=== PATIENT | male | born 1975 | race Caucasian/White ===

== ENCOUNTER → 2017-09-14 | Outpatient (CLI) | payer BC ==
--- NOTE | 2017-09-14 13:18 | XR ---
EXAMINATION TYPE: XR lumbar spine 3V DATE OF EXAM: 09/14/2017 COMPARISON: NONE HISTORY: 42-year-old male with low back pain TECHNIQUE: 3 views FINDINGS: 5 lumbar type vertebral bodies. Mild to moderate disc space narrowing with endplate spondylosis at L4 -L5 and L5-S1. There is grade 1 retrolistheses at L3-L4 and L4-L5. Facet arthropathy mid to lower lum bar spine. Vertebral body heights are maintained. IMPRESSION: 1. [id number] degenerative disc disease L4-L5 and L5-S1 with corresponding facet arthropathy. 2. Trace grade 1 retrolisthesis at L3-L4 and L4-L5.
--- NOTE | 2017-09-14 13:20 | XR ---
EXAMINATION TYPE: XR Hip Complete 2 views RT DATE OF EXAM: 09/14/2017 COMPARISON: NONE HISTORY: 42-year-old male with right hip pain FINDINGS: Hip joint space is relatively maintained. No acute fracture, subluxation, or dislocation. Visualized right SI joint appears intact. Tiny bone island in the femoral neck. IMPRESSION: No acute osseous abnormality seen.
== END ==
LOC: RADXRMAIN 12:35
PROVIDERS: ATTEND Physician Assistant
DX: M51.37 Other intervertebral disc degeneration, lumbosacral region (principal); M46.87 Other specified inflammatory spondylopathies, lumbosacral region; M25.551 Pain in right hip
CPT/HCPCS: 72100; 73502

== ENCOUNTER 2017-11-16 07:55 | Day surgery (SDC) | payer BC ==
[2017-11-14 11:49] VITALS: BMI 35.3
--- NOTE | 2017-11-16 07:45 | P.GSHP ---
History of Present Illness H&P Date: 11/16/17 CHIEF COMPLAINT: GERD and change in bowel habits HISTORY OF PRESENT ILLNESS: The patient is a 42-year-old male who presents with gastroesophageal reflux disease and change in bowel habit Upper and lower endoscopy were offered for further evaluation and management. PAST MEDICAL HISTORY: Please see list. PAST SURGICAL HISTORY: Please see list. MEDICATIONS: Please see list. ALLERGIES: Please see list. SOCIAL HISTORY: No illicit drug use FAMILY HISTORY: No reports of Crohn disease or ulcerative colitis. REVIEW OF ORGAN SYSTEMS: CONSTITUTIONAL: No reports of fevers or chills. GI: Denies any blood in stools or constipation. PHYSICAL EXAM: VITAL SIGNS: Stable GENERAL: Well-developed pleasant in no acute distress. HEENT: No scleral icterus. Extraocular movements grossly intact. Moist buccal mucosa. NECK: Supple without lymphadenopathy. CHEST: Unlabored respirations. Equal bilateral excursions. CARDIOVASCULAR: Regular rate and rhythm. Distal 2+ pulses. ABDOMEN: Soft, nondistended. MUSCULOSKELETAL: No clubbing, cyanosis, or edema. ASSESSMENT: 1. Gastroesophageal reflux disease 2. Change in bowel habits PLAN: 1. Recommend proceeding with an upper and lower endoscopy Past Medical History Past Medical History: GERD/Reflux, Hypertension, Musculoskeletal Disorder Additional Past Medical History / Comment(s): recent blood in stool, sciatic pain, hx. of blood clot behind testicle after vasectomy surgeries-was on blood thinner for @that time History of Any Multi-Drug Resistant Organisms: None Reported Past Surgical History: Appendectomy, Orthopedic Surgery, Tonsillectomy Additional Past Surgical History / Comment(s): vasectomy reversal, arthroscopy knee Past Anesthesia/Blood Transfusion Reactions: No Reported Reaction Smoking Status: Former smoker - Past Family History Mother Family Medical History: No Reported History Medications and Allergies Home Medications Medication Instructions Recorded Confirmed Type Cyclobenzaprine HCl [Amrix] 15 mg PO HS 11/14/17 11/14/17 History Lisinopril [Zestril] 20 mg PO DAILY 11/14/17 11/14/17 History Naproxen [Naprosyn] 500 mg PO Q12HR 11/14/17 11/14/17 History Omeprazole [PriLOSEC] 20 mg PO AC-BRKFST 11/14/17 11/14/17 History traMADol HCL [Ultram] 50 mg PO Q6HR PRN 11/14/17 11/14/17 History Allergies Allergy/AdvReac Type Severity Reaction Status Date / Time No Known Allergies Allergy Verified 11/14/17 11:27
[~2017-11-16 07:55] MED LIST: LACTATED RINGERS 1,000 ML IV SCH; LIDOCAINE 1% 20 ML VIAL (10MG/ML) FOR IV START INTRADERMA PRN; MIDAZOLAM 2 MG/2 ML VIAL IV PRN
[2017-11-16 09:01] VITALS: RESP 18; TEMP 99
[2017-11-16] MEDS ORDERED: PROPOFOL 10 MG/ML 20 ML VIAL IV ONE (09:20)
[2017-11-16] MEDS ORDERED: LIDOCAINE 1% INJ 10MG/ML (20 ML MDV) ONE (09:20)
--- NOTE | 2017-11-16 09:54 | P.PCN ---
Date of Procedure: 11/16/17 Description of Procedure: PREOPERATIVE DIAGNOSIS: Gastrointestinal bleed POSTOPERATIVE DIAGNOSIS: Diaphragmatic hiatal hernia without obstruction. OPERATION: Esophagogastroduodenoscopy SURGEON: Aide Santillan MD ANESTHESIA: MAC. INDICATIONS: The patient is a 42-year-old male who presents with history of gastrointestinal bleed. Benefits and risks of the procedure were described. Informed consent was obtained. DESCRIPTION: The patient was brought into the endoscopy suite and laid in the left lateral decubitus position. An Olympus gastroscope was passed along the posterior oropharynx down to the distal esophagus where the squamocolumnar junction was encountered at 40 cm from the incisors. The stomach was entered and no bile reflux was found. Additional findings are listed below. The first through third portion of the duodenum was examined and unremarkable. Retroflexion of the scope confirmed Hill grade 3 lower esophageal valve. The squamocolumnar junction demostrated no LA grade A erosive esophagitis. The stomach was desufflated. The patient tolerated the procedure well. FINDINGS: Squamocolumnar junction 40 cm from the incisors. Diaphragmatic hiatus at 40 cm. Hill grade 3 lower esophageal valve. No LA grade A erosive esophagitis. No active duodenitis. No gastric ulcers RECOMMENDATIONS: Upper endoscopy as needed.
--- NOTE | 2017-11-16 10:00 | P.PCN ---
Date of Procedure: 11/16/17 Description of Procedure: PREOPERATIVE DIAGNOSIS: History of gastrointestinal hemorrhage. History of rectal bleed. POSTOPERATIVE DIAGNOSIS: Internal hemorrhoids. Colon polyp, sigmoid OPERATION: Colonoscopy to the ileocecal valve and appendiceal orifice Colonoscopy with snare polypectomy of sigmoid colon SURGEON: Aide Santillan MD. ANESTHESIA: MAC. INDICATIONS: The patient is a 42-year-old male who presents with rectal bleeding. Benefits and risks were described and informed consent was obtained. DESCRIPTION OF PROCEDURE: The patient had undergone Gatorade, MiraLAX and Dulcolax prep. He had been brought into the operating room and laid in the left lateral decubitus position. After adequate intravenous sedation, the rectum was examined with 2% lidocaine jelly. No external hemorrhoids were encountered. The rectal tone was within normal limits. No lesions were palpated in the rectal vault. The prostate was smooth and without abnormality. An Olympus colonoscope was advanced until the ileocecal valve and appendiceal orifice were clearly viewed. No colitis was found. No arteriovenous malformation was encountered. A hyperplastic polyp was found at 20 cm from the anal verge and snare polypectomy. Retroflexion of the scope demonstrated grade 2 internal hemorrhoids without active bleeding or inflammation. The colon was desufflated. The patient had tolerated the procedure well. FINDINGS: Internal hemorrhoids, grade 2. No external prolapsed hemorrhoids. No diverticulosis. No focal colitis. No arteriovenous malformation. A hyperplastic polyp 4-mm, was found at 20 cm from the anal verge and snare polypectomy. RECOMMENDATIONS: Recommend proceeding with upper endoscopy. If both scopes are unremarkable may also need a capsule endoscopy in the future. Plan - Discharge Summary New Discharge Prescriptions: No Action traMADol HCL [Ultram] 50 mg PO Q6HR PRN PRN Reason: Pain Cyclobenzaprine HCl [Amrix] 15 mg PO HS Omeprazole [PriLOSEC] 20 mg PO AC-BRKFST Naproxen [Naprosyn] 500 mg PO Q12HR Lisinopril [Zestril] 20 mg PO DAILY Discharge Medication List Cyclobenzaprine HCl [Amrix] 15 mg PO HS 11/14/17 [History] Lisinopril [Zestril] 20 mg PO DAILY 11/14/17 [History] Naproxen [Naprosyn] 500 mg PO Q12HR 11/14/17 [History] Omeprazole [PriLOSEC] 20 mg PO AC-BRKFST 11/14/17 [History] traMADol HCL [Ultram] 50 mg PO Q6HR PRN 11/14/17 [History]
[2017-11-16 10:40] VITALS: BP 114/80; PULSE 80
--- NOTE | 2017-11-18 15:10 | CDI ---
Outpatient Documentation Clarification Form Date: 11/18/17 CDS/Space Officer Name: Mariam Warren Phone: If any questions, call Milly Phelps Circuit Design Engineer at [phone] Patient Name: Michele Chen Admit Date: 11/16/17 Discharge Date: 11/16/17 ATTENTION: The [facility] Coding Staff appreciate your assistance in clarifying documentation. Please respond to the clarification below the line at the bottom and electronically sign. The [facility] Coding staff will review the response and follow-up if needed. Please note: Queries are made part of the Legal Health Record. If you have any questions, please contact the Circuit Design Engineer. Dear Dr. Santillan, Both rectal bleeding and gastrointestinal hemorrhage are documented. What is the cause of either or both? Thank you for your kind consideration. PLEASE SEE POSTOP DIAGNOSIS----RECTAL BLEEDING FROM HEMORRHOIDS! KM 11/18/17 @ 15 :43 MTDD
== END 2017-11-16 10:49 | disposition home or self-care (01) ==
LOC: ORWHC2ENDO 07:55
PROVIDERS: ATTEND Surgery Plastic and Reconstructive Surgery
DX: K64.1 Second degree hemorrhoids (principal); K63.5 Polyp of colon; K44.9 Diaphragmatic hernia without obstruction or gangrene; K21.9 Gastro-esophageal reflux disease without esophagitis; R19.4 Change in bowel habit; I10 Essential (primary) hypertension; Z87.891 Personal history of nicotine dependence; Z79.1 Long term (current) use of non-steroidal anti-inflammatories (NSAID); Z79.899 Other long term (current) drug therapy
CPT/HCPCS: 88305; 45385; 43235; J2001; J2704

== ENCOUNTER → 2017-11-28 | Outpatient (CLI) | payer BC ==
--- NOTE | 2017-11-28 20:47 | MR ---
EXAMINATION TYPE: MR lumbar spine wo con DATE OF EXAM: 11/28/2017 7:20 PM COMPARISON: NONE HISTORY: Pain Multiplanar, MultiSpin echo imaging of the lumbar spine was performed. L1-L2: Normal disc appearance without desiccation. No herniation, protrusion or disc bulging. No ca nal stenosis is present. Foramina are patent bilaterally. L2-L3: Moderate evidence of disc desiccation. Right paracentral subligamentous disc herniation. Mild effacement ventral thecal sac. Right lateral recess stenosis noted. Tubular fluid signal structure ri ght neural foramen may reflect perineural cyst. No evidence for central stenosis. L3-L4: Normal disc appearance without desiccation. No herniation, protrusion or disc bulging. No ca nal stenosis is present. Foramina are patent bilaterally. L4-L5: Moderate to severe disc desiccation. Circumferential disc bulge greatest posteriorly. Subligam entous herniation effaces the ventral thecal sac. Hypertrophy of the ligamentum flavum and facet join t arthropathy result in borderline to mild central stenosis. Bilateral foraminal encroachment. Mild f acet joint arthropathy. L5-S1: Moderate to severe disc desiccation. Circumferential disc bulge. Left paracentral disc protrus ion. Mild effacement ventral thecal sac. No definite lateral recess stenosis. Lumbar segments are intact. No paraspinal masses are identified. Conus medullaris has a normal appe arance. IMPRESSION: 1. Multilevel degenerative disc disease. 2. Right L2-3 paracentral mild disc herniation with right lateral recess stenosis. Adjacent tubular f luid signal A reflect a perineural cyst. This could be confirmed with contrast-enhanced study. 3. Borderline to mild the central stenosis at L4-5. 4. Left paracentral disc protrusion L5-S1.
== END | disposition home or self-care (01) ==
LOC: RADMRIMAIN 18:34
PROVIDERS: ATTEND Family Medicine
DX: M48.061 Spinal stenosis, lumbar region without neurogenic claudication (principal); M51.36 Other intervertebral disc degeneration, lumbar region; M51.27 Other intervertebral disc displacement, lumbosacral region; M53.86 Other specified dorsopathies, lumbar region
CPT/HCPCS: 72148

== ENCOUNTER → 2018-01-16 | Outpatient (CLI) | payer BC ==
[2018-01-16 18:22] LABS: Blood Urea Nitrogen 16 mg/dL (9-20)
--- NOTE | 2018-01-17 06:42 | MR ---
EXAMINATION TYPE: MR lumbar spine w con DATE OF EXAM: 01/16/2018 COMPARISON: Recent MRI lumbar spine November 28, 2017 HISTORY: Intervertebral disc disorders with radiculopathy per order. Back pain for years into both l ower extremities per patient. TECHNIQUE: Multiplanar, multisequence images of the lumbar spine is performed with IV contrast, utilizing 13 mL intravenous Gadavist FINDINGS: Area of concern on prior MRI L2-L3 level seen best prior exam sagittal image 11 and axial i mage 27 likely corresponds to level near axial image 26 and sagittal image 13 on current exam. No def initive internal enhancement is identified at this level. Curvilinear lesion is low T1 and high T2 si gnal but not as bright as fluid, differential includes debris-filled perineural cyst or disc herniati on/fragment. IMPRESSION: As above
== END | disposition home or self-care (01) ==
LOC: RADMRIMAIN 17:54
DX: M51.17 Intervertebral disc disorders with radiculopathy, lumbosacral region (principal)
CPT/HCPCS: 82565; 84520; 72149; 36415; A9581

== ENCOUNTER → 2018-01-24 | Outpatient (CLI) | payer BC ==
[2018-01-24 11:34] LABS: Basophils % (A) 1 %; Eosinophils # (A) 0.4 k/uL (0-0.7); Eosinophils % (A) 6 %; HCT 43.8 % (39.0-53.0); HGB 15.3 gm/dL (13.0-17.5); Lymphocytes # (A) 1.8 k/uL (1.0-4.8); Lymphocytes % (A) 29 %; MCH 31.1 pg (25.0-35.0); MCV 88.8 fL (80.0-100.0); Mean Platelet Volume 7.1; Monocytes # (A) 0.4 k/uL (0-1.0); Monocytes % (A) 7 %; Neutrophils # (A) 3.6 k/uL (1.3-7.7); Neutrophils % (A) 56 %; Platelet Count 264 k/uL (150-450); RBC 4.93 m/uL (4.30-5.90); WBC 6.4 k/uL (3.8-10.6)
[2018-01-24 11:37] LABS: Appearance,Urine Clear (Clear); Bilirubin,Urine Negative (Negative); Blood,Urine Negative (Negative); Color,Urine Yellow; Glucose,Urine (UA) Negative (Negative); Ketones,Urine Negative (Negative); Leukocyte Esterase,Urine Negative (Negative); Nitrite,Urine Negative (Negative); PH, Urine 5.5 (5.0-8.0); Protein,Urine Negative (Negative); Specific Gravity,Urine 1.016 (1.001-1.035); Urobilinogen,Urine <2.0 mg/dL (<2.0)
[2018-01-24 11:46] LABS: ALT 40 U/L (21-72); AST 22 U/L (17-59); Albumin 4.7 g/dL (3.5-5.0); Alkaline Phosphatase 61 U/L (38-126); Anion Gap 8 mmol/L; Blood Urea Nitrogen 17 mg/dL (9-20); Calcium 9.6 mg/dL (8.4-10.2); Carbon Dioxide 27 mmol/L (22-30); Chloride 106 mmol/L (98-107); Glucose 92 mg/dL (74-99); Potassium 4.5 mmol/L (3.5-5.1); Sodium 141 mmol/L (137-145); Total Bilirubin 0.6 mg/dL (0.2-1.3); Total Protein 7.3 g/dL (6.3-8.2)
[2018-01-24 11:49] LABS: INR 1.1 (<1.2); Partial Thromboplastin Time 27.2 sec (22.0-30.0); Prothrombin Time 10.4 sec (9.0-12.0)
== END | disposition home or self-care (01) ==
LOC: LABWHC1 10:56
PROVIDERS: ATTEND Physician Assistant
DX: M51.36 Other intervertebral disc degeneration, lumbar region (principal); Z77.011 Contact with and (suspected) exposure to lead
CPT/HCPCS: 36415; 80053; 81003; 83655; 85025; 85610; 85730

== ENCOUNTER → 2019-09-10 | Outpatient (CLI) | payer OTHER, BC ==
--- NOTE | 2019-09-10 10:59 | US ---
EXAMINATION TYPE: US abdomen complete DATE OF EXAM: 09/10/2019 COMPARISON: US CLINICAL HISTORY: R10.9 abdominal pain. Pt states ABD pain, nausea, soft stools EXAM MEASUREMENTS: Liver Length: 16.9 cm Gallbladder Wall: 0.2 cm CBD: 0.3 cm Spleen: 12.5 cm Right Kidney: 12.1 x 6.8 x 4.9 cm Left Kidney: 11.3 x 6.7 x 5.6 cm Larger pt body habitus, very gassy, and unable to take a big breath in and hold it Pancreas: Obscured by bowel gas Liver: Heterogeneous, difficult to penetrate, mostly visualized intercostally. This limits evaluatio n for hepatic masses. Gallbladder: wnl Evidence for sonographic Carlisle's sign: Yes CBD: wnl Spleen: wnl Right Kidney: Possible 4mm calculus lower pole Left Kidney: wnl Upper IVC: Difficult to visualize Abd Aorta: wnl Results called to Zafar CARDOSO at Dr's office at time of exam The liver is heterogenous. The intrahepatic portion of the IVC and proximal abdominal aorta are with in normal limits. There is no evidence of cholelithiasis. Common bile duct is unremarkable. Pancrea s is obscured by bowel gas. The spleen is unremarkable. Kidneys are symmetric and free of hydroneph rosis. No renal lesions are seen. IMPRESSION: 1. Sonographic findings most commonly related to hepatic steatosis. Correlate with liver function te sts. 2. No sonographic evidence of acute cholecystitis however there is a positive sonographic Carlisle sign and therefore HIDA scan could be performed with CCK to evaluate for biliary dyskinesia. 3. Possible 4 mm left lower pole nonobstructing renal calculus. 4. Limited evaluation of some structures above given patient body habitus and overlying bowel gas.
== END | disposition home or self-care (01) ==
LOC: RADUSWWP 10:05
PROVIDERS: ATTEND Family Medicine
DX: R10.9 Unspecified abdominal pain (principal)
CPT/HCPCS: 76700

== ENCOUNTER → 2019-09-15 | Outpatient (CLI) | payer OTHER, BC ==
--- NOTE | 2019-09-15 10:49 | NM ---
EXAMINATION TYPE: NM hepatobiliary w EF DATE OF EXAM: 09/15/2019 COMPARISON: Ultrasound abdomen 5 days earlier HISTORY: Right upper quadrant pain. TECHNIQUE: After the intravenous administration of 4.9 mCi Tc 99m Mebrofenin hepatobiliary scintigrap hy is performed. Immediate images post injection. FINDINGS: There is satisfactory initial accumulation of tracer by the liver. The gallbladder is visualized wit hin 15 minutes. The small bowel activity is noted within 40 minutes. At one hour 8 ounces of oral e nsure plus is given to mimic CCK and gallbladder ejection fraction is calculated at 39 %, in the norm al range. Therefore there is no scintigraphic evidence of cystic or common bile duct obstruction to suggest acute cholecystitis or gallbladder dyskinesia. IMPRESSION: Exam is within normal limits.
== END | disposition home or self-care (01) ==
LOC: RADNMMAIN 08:38
PROVIDERS: ATTEND Internal Medicine
DX: R10.11 Right upper quadrant pain (principal)
CPT/HCPCS: 78226; A9537

== ENCOUNTER → 2020-01-16 | Outpatient (CLI) | payer OTHER, BC ==
[2020-01-16 15:41] LABS: Basophils % (A) 1 %; Eosinophils # (A) 0.2 k/uL (0-0.7); Eosinophils % (A) 2 %; HCT 39.7 % (39.0-53.0); Lymphocytes # (A) 2.2 k/uL (1.0-4.8); Lymphocytes % (A) 27 %; MCH 29.9 pg (25.0-35.0); MCHC 32.7 g/dL (31.0-37.0); MCV 91.4 fL (80.0-100.0); Mean Platelet Volume 7.7; Monocytes # (A) 0.6 k/uL (0-1.0); Monocytes % (A) 8 %; Neutrophils # (A) 4.9 k/uL (1.3-7.7); Neutrophils % (A) 61 %; Platelet Count 264 k/uL (150-450); RBC 4.34 m/uL (4.30-5.90); RDW 12.8 % (11.5-15.5); WBC 8.2 k/uL (3.8-10.6)
== END | disposition home or self-care (01) ==
LOC: LABPAT 14:17
PROVIDERS: ATTEND Surgery Plastic and Reconstructive Surgery
DX: Z01.818 Encounter for other preprocedural examination (principal); K80.20 Calculus of gallbladder without cholecystitis without obstruction
CPT/HCPCS: 36415; 85025; 93005

== ENCOUNTER 2020-01-18 06:12 | Day surgery (SDC) | payer OTHER, BC ==
[2020-01-15 15:53] VITALS: BMI 35.9
[~2020-01-18 06:12] MED LIST changes: +HEPARIN SODIUM,PORCINE 5,000 UNIT/ML 1 ML VIAL SQ ONE; -LACTATED RINGERS 1,000 ML IV SCH; -LIDOCAINE 1% 20 ML VIAL (10MG/ML) FOR IV START INTRADERMA PRN; -MIDAZOLAM 2 MG/2 ML VIAL IV PRN; +ceFAZolin 3 GM in SODIUM CHLORIDE 0.9% 100 ML IVPB ONE
[2020-01-18] MEDS ORDERED: ACETAMINOPHEN TAB 500 MG TAB PO STA (06:20)
--- NOTE | 2020-01-18 06:23 | P.GSHP ---
History of Present Illness H&P Date: 01/18/20 CHIEF COMPLAINT: Cholecystitis HISTORY OF PRESENT ILLNESS: The patient is a 44-year-old male who presents with history of epigastric including right upper quadrant abdominal pain. He underwent diagnostic studies for the gallbladder. Separately his clinical picture was consistent with cholecystitis. Now he presents for surgical intervention. PAST MEDICAL HISTORY: Please see list PAST SURGICAL HISTORY: Please see list MEDICATIONS: Please see list ALLERGIES: Denies. SOCIAL HISTORY: No illicit drug use or recent tobacco use FAMILY HISTORY: Pertinent for gallbladder disease REVIEW OF ORGAN SYSTEMS: CONSTITUTIONAL: No reports of fevers or chills. HEENT: Denies any troubles with the vision or hearing. ENDOCRINE: No reports of hypothyroidism. No diabetes. RESPIRATORY: No recent pneumonias. CARDIOVASCULAR: Denies chest pain or palpitations GI: No blood in stools or constipation. MUSCULOSKELETAL: Has occasional joint pain including back pain. NEURO: No seizure disorders or headaches. No recent stroke. PSYCH: No depression or suicidal ideation. HEMATOLOGIC: No personal or family history of DVTs or pulmonary emboli. PHYSICAL EXAM: VITAL SIGNS: Afebrile vital signs stable GENERAL: Well-developed pleasant male in no acute distress. HEENT: No scleral icterus. Extraocular movements grossly intact. Moist buccal mucosa. NECK: Supple without lymphadenopathy. CHEST: Unlabored respirations. Equal bilateral excursions. CARDIOVASCULAR: Regular rate regular rhythm rhythm. Distal 2+ pulses. ABDOMEN: Soft, nondistended. Tender along the epigastrium and right upper quadrant. MUSCULOSKELETAL: No clubbing, cyanosis, or edema. NEURO : No focal or lateralizing signs. Cranial nerves II-12 within normal limits. PSYCH: Alert and oriented to person, place and time. SKIN: Well perfused. Good skin turgor. ASSESSMENT: 1. Epigastric and right upper quadrant abdominal pain 2. Chronic cholecystitis PLAN: 1. Will need a robotic cholecystectomy possible open. Benefits and risks were described. 2. Heparin for DVT prophylaxis 5000 units. 3. Antibiotic prophylaxis. Past Medical History Past Medical History: Hyperlipidemia, Hypertension Additional Past Medical History / Comment(s): sciatic pain, hx. of blood clot behind testicle after vasectomy surgeries-was on blood thinner for @that time History of Any Multi-Drug Resistant Organisms: None Reported Past Surgical History: Appendectomy, Back Surgery, Orthopedic Surgery Additional Past Surgical History / Comment(s): vasectomy then reversal, arthroscopy rt knee, COLONOSCOPY, EGD Past Anesthesia/Blood Transfusion Reactions: No Reported Reaction Smoking Status: Former smoker - Past Family History Mother Family Medical History: No Reported History Sister(s) Family Medical History: Deep Vein Thrombosis (DVT) Medications and Allergies Home Medications Medication Instructions Recorded Confirmed Type Atorvastatin [Lipitor] 40 mg PO HS 01/15/20 01/15/20 History Biotin 10,000 mcg PO DAILY 01/15/20 01/15/20 History Garlic 1 each PO DAILY 01/15/20 01/15/20 History Lisinopril 30 mg PO DAILY 01/15/20 01/15/20 History Turmeric Root Extract [Turmeric] 500 mg PO DAILY 01/15/20 01/15/20 History Ubidecarenone [Co Q-10] 100 mg PO DAILY 01/15/20 01/15/20 History Allergies Allergy/AdvReac Type Severity Reaction Status Date / Time No Known Allergies Allergy Verified 01/15/20 15:33
[2020-01-18] MEDS ORDERED: ACETAMINOPHEN TAB 500 MG TAB ONE (06:47)
[2020-01-18] MEDS ORDERED: HEPARIN SODIUM,PORCINE 5,000 UNIT/ML 1 ML VIAL ONE (06:48)
[2020-01-18] MEDS ORDERED: ONDANSETRON 4 MG/2 ML VIAL ONE (06:48)
[2020-01-18] MEDS ORDERED: DEXAMETHASONE SOD PHOSPHATE 10 MG/ML 1 ML VIAL IV ONE (06:52)
[2020-01-18] MEDS ORDERED: LACTATED RINGERS 1,000 ML IV SCH (06:52)
[2020-01-18] MEDS ORDERED: LIDOCAINE 1% (10MG/ML) FOR IV START INTRADERMA PRN (06:52)
[2020-01-18] MEDS ORDERED: MIDAZOLAM 2 MG/2 ML VIAL IV PRN (06:52)
[2020-01-18] MEDS ORDERED: fentaNYL (PF) 50 MCG/ML 2 ML AMP IV PRN (06:52)
[2020-01-18] MEDS ORDERED: INDOCYANINE GREEN 25 MG VIAL IV ONE ×2 (07:00→07:32)
[2020-01-18] MEDS ORDERED: GABAPENTIN 300 MG CAP PO ONE (07:00)
[2020-01-18] MEDS ORDERED: TAMSULOSIN 0.4 MG CAP.ER.24H PO ONE (07:00)
[2020-01-18] MEDS ORDERED: MIDAZOLAM 2 MG/2 ML VIAL IV ONE (07:13)
[2020-01-18] MEDS: ONDANSETRON 4 MG/2 ML VIAL IVP ONE ×2 (07:25→08:59)
[2020-01-18 07:28] LABS: ALT 20 U/L (4-49); AST 20 U/L (17-59); African American GFR (CKD) >90 (>60 ml/min/1.73 sqM); Albumin 4.5 g/dL (3.5-5.0); Alkaline Phosphatase 52 U/L (38-126); Anion Gap 5 mmol/L; Blood Urea Nitrogen 16 mg/dL (9-20); Calcium 9.2 mg/dL (8.4-10.2); Carbon Dioxide 27 mmol/L (22-30); Chloride 106 mmol/L (98-107); Glucose 108 mg/dL (74-99); Non-African American GFR(CKD) >90 (>60 ml/min/1.73 sqM); Potassium 4.7 mmol/L (3.5-5.1); Sodium 138 mmol/L (137-145); Total Bilirubin 0.7 mg/dL (0.2-1.3); Total Protein 6.9 g/dL (6.3-8.2)
[2020-01-18] MEDS ORDERED: GLYCOPYRROLATE 0.2 MG/ML 2 ML VIAL ONE (07:32)
[2020-01-18] MEDS ORDERED: PROPOFOL 10 MG/ML 20 ML VIAL IV ONE (07:32)
[2020-01-18] MEDS ORDERED: ROCURONIUM BROMIDE 10 MG/ML 5 ML VIAL IV ONE (07:32)
[2020-01-18] MEDS ORDERED: fentaNYL (PF) 50 MCG/ML 2 ML AMP ONE (07:32)
[2020-01-18] MEDS ORDERED: SUCCINYLCHOLINE CHLORIDE 100 MG/5 ML SYR IV ONE (07:32)
[2020-01-18] MEDS ORDERED: NEOSTIGMINE 1 MG/ML 10 ML VIAL ONE (07:32)
[2020-01-18] MEDS ORDERED: ROPIVACAINE 5 MG/ML 30 ML VIAL ONE (07:32)
[2020-01-18] MEDS ORDERED: BUPIVACAIN-EPI 0.25%-1:200,000 30 ML VIAL SQ ONE (07:55)
--- NOTE | 2020-01-18 08:34 | P.ANPRN ---
Procedure Note - Anesthesia - Nerve Block Performed Bilateral Transversus Abdominis Single Time Out Performed: Yes Date of Procedure: 01/18/20 Procedure Start Time: 07:12 Procedure Stop Time: 07:15 Location of Patient: PreOp Indication: Acute Post-Operative Pain, Analgesia, Dx/Pain Location Sedation Type: Sedate with meaningful contact maintained Preparation: Sterile Prep Position: Supine Catheter: None Needle Types: Pajunk Needle Gauge: 21 Ultrasound used to visualize needle placement: Yes Ultrasound used to observe medication spread: Yes Injectate: 0.5% Ropivacaine (see comment for volume) (0.25% 30cc b/l) Blood Aspirated: No Pain Paresthesia on Injection Noted: No Resistance on Injection: Normal Image Stored and Saved: Yes Events: Uneventful and Well Tolerated
--- NOTE | 2020-01-18 08:41 | P.OP ---
Date of Procedure: 01/18/20 Description of Procedure: SURGEON: AIDE SANTILLAN MD PREOPERATIVE DIAGNOSES: 1. Symptomatic gallstones 2. Hyperlipidemia 3. Hypertensive heart disease 4. Morbid obesity due to excess calories, BMI 35.7 POSTOPERATIVE DIAGNOSES: 1. Symptomatic gallstones 2. Hyperlipidemia 3. Hypertensive heart disease 4. Morbid obesity due to excess calories, BMI 35.7 OPERATION: Robotic-assisted da Jamie Xi laparoscopic cholecystectomy, multiport with FIREFLY ESTIMATED BLOOD LOSS: 5 mL. SPECIMENS REMOVED: Gallbladder. COMPLICATIONS: None. OPERATIVE FINDINGS: 1. Gallstones identified along cystic duct. 2. No inguinal hernias INDICATIONS: The patient is a 44-year-old male who presents with epigastric right upper quadrant dull pain with gallbladder disorder. Surgical intervention with a laparoscopic cholecystectomy was described. Robotic assisted laparoscopic approach was described. Benefits and risks of the procedure including but not limited to bleeding, infection, injury to the biliary tree was described. Informed consent was obtained. DESCRIPTION OF PROCEDURE: Patient was brought to the operating room, placed in supine position. After general induction, the abdomen had been prepped and draped in standard sterile fashion. The robotic da Jamie XI system was primed. After a timeout protocol was performed, the patient had been prepped and draped in standard sterile fashion. The patient was injected with indocyanine green. A 5 mm 0 degrees laparoscopic trocar entry was performed along the left upper quadrant. The abdomen insufflated to 15 mmHg pressure which was tolerated well. Diagnostic laparoscopy demonstrated no injury to bowel viscera or mesentery. The liver surface was unremarkable. Next, two 8 mm robotic ports were placed along the right upper abdomen. The camera 8-mm port was maintained along the epigastrium. Another 8 mm port was placed along the left upper abdominal wall after exchanging the 5 mm port. Please note that the ports were placed at least 10 to 15 cm away from the target anatomy of the gallbladder. The robot was docked along the left lateral abdomen. The patient was repositioned in reverse Trendelenburg position. Using a grasper for arm 3, a grasper for arm 4, including hook cautery for arm 1, the robotic system was docked and primed as described. Instruments were interchanged by the human resources executive assistant including hook cautery, Bovie cautery and clip appliers. I had sat at the console. The gallbladder fundus was retracted over the dome of the liver. Initial attention was brought to the infundibulum including cystic lymph node. Initial dissection was performed over the cystic lymph node at the infundibulum using hook cautery. The infundibulum was retracted laterally to expose the cystic duct away from the common bile duct. The cystic duct including the cystic artery were dissected free from its anderson rrounding tissue. FIREFLY was used to identify the cystic artery and cystic structures. A critical view of safety was obtained. Large PLASTIC clips were used throughout the entire case. Using a clip shell sorter, 2 clips were placed at the junction of the infundibulum and cystic duct. The cystic duct was divided between clips. Next, the cystic artery was similarly clipped and cauterized. Electro-Bovie cautery was used to remove the gallbladder from the hepatic fossa. Hemostasis was checked and found to be adequate. The robot was undocked. I re-scrubbed into the case. Using a 10 mm Endo Catch bag via the left upper quadrant incision, the specimen was removed from the abdominal cavity. All pneumoperitoneum instruments were evacuated from the abdominal cavity. The incisions were reapproximated using 4-0 Monocryl in an interrupted subcuticular fashion. Fascial defects were less than 8 mm in size. Please note along the trocar sites, local anesthetic was placed as a field block prior to insertion of all instruments. Liquid glue was applied to the skin. At the end of the procedure needle, sponge, and instrument count had been verified correct by the surgical tech. The patient was transferred to postanesthesia care unit in stable condition. Intraoperative films were shared with the patient's family who were pleased with the level of care. Plan - Discharge Summary Discharge Rx Participant: Yes New Discharge Prescriptions: Continue Ubidecarenone [Co Q-10] 100 mg PO DAILY Lisinopril 30 mg PO DAILY Atorvastatin [Lipitor] 40 mg PO HS Biotin 10,000 mcg PO DAILY Discontinued Turmeric Root Extract [Turmeric] 500 mg PO DAILY Garlic 1 each PO DAILY Discharge Medication List Atorvastatin [Lipitor] 40 mg PO HS 01/15/20 [History] Biotin 10,000 mcg PO DAILY 01/15/20 [History] Lisinopril 30 mg PO DAILY 01/15/20 [History] Ubidecarenone [Co Q-10] 100 mg PO DAILY 01/15/20 [History] Follow up Appointment(s)/Referral(s): Aide Santillan MD [STAFF PHYSICIAN] - 01/22/20 Patient Instructions/Handouts: Laparoscopic Cholecystectomy (DC) Activity/Diet/Wound Care/Special Instructions: No lifting over 10 pounds in 2 weeks until January 31November shower. No bath tub soaks for two weeks until January 31 Diet as tolerated. No driving while on narcotics. Use Tylenol and ibuprofen or Aleve scheduled for the next 24-48 hours for best pain relief. Use ice along incisions for the today to prevent swelling. Discharge Disposition: HOME SELF-CARE
[2020-01-18 08:55] VITALS: RESP 16; TEMP 97
[2020-01-18] MEDS: HYDROmorphone 0.5 MG/0.5 ML SYRINGE IVP PRN ×2 (08:58→09:07)
[2020-01-18] MEDS ORDERED: KETOROLAC 30 MG/ML 1 ML VIAL IVP ONE (08:59)
[2020-01-18 10:39] VITALS: BP 113/73; PULSE 70
== END 2020-01-18 10:37 | disposition home or self-care (01) ==
LOC: OR 06:12
PROVIDERS: ATTEND Surgery Plastic and Reconstructive Surgery
DX: K80.20 Calculus of gallbladder without cholecystitis without obstruction (principal); E78.5 Hyperlipidemia, unspecified; I11.9 Hypertensive heart disease without heart failure; K08.89 Other specified disorders of teeth and supporting structures; Z68.35 Body mass index [BMI] 35.0-35.9, adult; Z86.718 Personal history of other venous thrombosis and embolism; Z98.52 Vasectomy status; Z90.49 Acquired absence of other specified parts of digestive tract; Z98.890 Other specified postprocedural states; Z87.891 Personal history of nicotine dependence; Z79.899 Other long term (current) drug therapy; Z82.49 Family history of ischemic heart disease and other diseases of the circulatory system
CPT/HCPCS: 47562; S2900; 64488; 80053; 88304

== ENCOUNTER → 2022-05-06 | Outpatient (CLI) | payer BC ==
--- NOTE | 2022-05-07 13:11 | CA ---
Transthoracic Echo Report Name: Michele Chen Age: 46 Gender: M : 1975 Exam Date: 05/06/2022 13:11 Exam Location: [facility] Ht (in): 72 Wt (lb): 275 Ordering Physician: Bryan Sanchez DO Attending/Referring Phys: Constanza Valdivia [facility] Cluster Bore Operator Ora Hughes, GUSTAVO Procedure CPT: Indications: R00.2 Cardiac Hx: Technical Quality: Contrast 1: Total Dose (mL): Contrast 2: Total Dose (mL): MEASUREMENTS (Male / Female) Normal Values 2D ECHO LV Diastolic Diameter PLAX 4.5 cm 4.2 - 5.9 / 3.9 - 5.3 cm LV Systolic Diameter PLAX 4.1 cm IVS Diastolic Thickness 0.9 cm 0.6 - 1.0 / 0.6 - 0.9 cm LVPW Diastolic Thickness 1.2 cm 0.6 - 1.0 / 0.6 - 0.9 cm LV Relative Wall Thickness 0.5 RV Internal Dim ED PLAX 2.6 cm LA Systolic Diameter LX 3.7 cm 3.0 - 4.0 / 2.7 - 3.8 cm M-MODE Aortic Root Diameter MM 3.4 cm LA Systolic Diameter MM 4.2 cm LA Ao Ratio MM 1.2 MV E Point Septal Separation 0.5 cm AV Cusp Separation MM 2.4 cm DOPPLER MV Area PHT 3.9 cm??? Mitral E Point Velocity 98.2 cm/s Mitral A Point Velocity 63.1 cm/s Mitral E to A Ratio 1.6 MV Deceleration Time 196.2 ms MV E' Velocity 13.0 cm/s Mitral E to MV E' Ratio 7.6 TR Peak Velocity 252.6 cm/s TR Peak Gradient 25.5 mmHg FINDINGS Left Ventricle Normal left ventricular size, wall thickness, systolic function with no obvious regional wall motion abnormalities. Left ventricular ejection fraction is estimated at 50-55%. Right Ventricle The right ventricle is normal in size and function. Right Atrium The right atrium is normal in size. Left Atrium The left atrium is normal in size. Mitral Valve Structurally normal mitral valve without significant stenosis or prolapse. There is mild mitral regurgitation. Aortic Valve Structurally normal aortic valve without significant sclerosis or stenosis. There is no aortic regurgitation. Tricuspid Valve Structurally normal tricuspid valve without significant stenosis. Pulmonary artery systolic pressure is normal. Pulmonic Valve Structurally normal pulmonic valve without significant stenosis. There is no pulmonic regurgitation. Pericardium Normal pericardium without effusion. Aorta Normal aortic root dimension. CONCLUSIONS Normal LV systolic function without segmental wall motion abnormalities Previewed by: Dr. Dennis Thibodeaux MD (Electronically Signed) Final Date: 07 May 2022 13:10
== END | disposition home or self-care (01) ==
LOC: RADECHMAIN 13:04
PROVIDERS: ATTEND Family Medicine
DX: R00.2 Palpitations (principal)
CPT/HCPCS: 93306

== ENCOUNTER 2022-06-12 13:20 | Emergency (ER) | payer BC ==
[2022-06-12] MEDS ORDERED: HYDROmorphone 0.5 MG/0.5 ML SYRINGE IVP STA (13:31)
[2022-06-12 13:32] VITALS: TEMP 97.8
--- NOTE | 2022-06-12 13:43 | ED ---
General Adult HPI - General Source: patient, EMS, RN notes reviewed, old records reviewed Mode of arrival: EMS Limitations: no limitations <Ulises Crawley - Last Filed: 06/12/22 15:02> <Leonel Powers - Last Filed: 06/12/22 16:57> - General Chief complaint: Fall Stated complaint: Fall Time Seen by Provider: 06/12/22 13:20 - History of Present Illness Initial comments: This is a 46-year-old male who presents emergency department after having fallen off a ladder. Patient fell about 6-8 feet off a ladder and hit his left shoulder and left hip. According to him EMS patient did not lose consciousness he denies being days per patient denies any neck pain. Patient complains of left shoulder left hip pain. According to EMS when they first got to him his radial pulse was unable to be obtained however when they moved him in they rechecked him the patient stated he felt a click in his shoulder and he then had radial pulses. Patient denies any chest pain or back pain. Patient denies any abdominal pain. Patient denies any lower extremity pain as besides the tender left hip. Patient has no knee ankle or foot pain. (Ulises Crawley) - Related Data Home Medications Medication Instructions Recorded Confirmed Atorvastatin [Lipitor] 40 mg PO HS 01/15/20 01/18/20 Biotin 10,000 mcg PO DAILY 01/15/20 01/18/20 Ubidecarenone [Co Q-10] 100 mg PO DAILY 01/15/20 01/18/20 lisinopriL 30 mg PO DAILY 01/15/20 01/18/20 Previous Rx's Medication Instructions Recorded HYDROcodone/APAP 5-325MG [[place] 1 tab PO Q6HR PRN 3 Days #12 tab 06/12/22 5-325] Naproxen [EC-Naproxen] 500 mg PO BID 14 Days #28 tab 06/12/22 methocarbamoL [Robaxin-750] 750 mg PO TID 14 Days #52 tab 06/12/22 Allergies Allergy/AdvReac Type Severity Reaction Status Date / Time No Known Allergies Allergy Verified 01/18/20 06:50 Review of Systems ROS Other: All systems not noted in ROS Statement are negative. <Ulises Crawley - Last Filed: 06/12/22 15:02> ROS Other: All systems not noted in ROS Statement are negative. <Leonel Powers - Last Filed: 06/12/22 16:57> ROS Statement: Those systems with pertinent positive or pertinent negative responses have been documented in the HPI. Past Medical History Past Medical History: Hyperlipidemia, Hypertension Additional Past Medical History / Comment(s): sciatic pain, hx. of blood clot behind testicle after vasectomy surgeries-was on blood thinner for @that time History of Any Multi-Drug Resistant Organisms: None Reported Past Surgical History: Appendectomy, Back Surgery, Orthopedic Surgery Additional Past Surgical History / Comment(s): vasectomy then reversal, arthroscopy rt knee, COLONOSCOPY, EGD Past Anesthesia/Blood Transfusion Reactions: No Reported Reaction Past Psychological History: No Psychological Hx Reported Smoking Status: Never smoker Past Alcohol Use History: Occasional Past Drug Use History: None Reported - Past Family History Mother Family Medical History: No Reported History Sister(s) Family Medical History: Deep Vein Thrombosis (DVT) <Ulises Crawley - Last Filed: 06/12/22 15:02> General Exam Limitations: no limitations <Ulises Crawley - Last Filed: 06/12/22 15:02> - General Exam Comments Initial Comments: GENERAL: Patient is well-developed and well-nourished. Patient is nontoxic and well- hydrated and is in mild distress. ENT: Neck is soft and supple. No significant lymphadenopathy is noted. Oropharynx is clear. Moist mucous membranes. Neck has full range of motion without eliciting any pain. EYES: The sclera were anicteric and conjunctiva were pink and moist. Extraocular movements were intact and pupils were equal round and reactive to light. Eyelids were unremarkable. PULMONARY: Unlabored respirations. Good breath sounds bilaterally. No audible rales rhonchi or wheezing was noted. CARDIOVASCULAR: There is a regular rate and rhythm without any murmurs gallops or rubs. ABDOMEN: Soft and nontender with normal bowel sounds. SKIN: Patient has a abrasion to the forehead just left of the midline. NEUROLOGIC: Patient is alert and oriented x3. Cranial nerves II through XII are grossly intact. Motor and sensory are also intact. Normal speech, volume and content. Symmetrical smile. MUSCULOSKELETAL: Patient's anterior left shoulder pain. Patient also has lateral left hip pain on palpation. There are no signs of any deformity. No signs of ecchymosis or abrasion to either area. LYMPHATICS: No significant lymphadenopathy is noted PSYCHIATRIC: Normal psychiatric evaluation. (Ulises Crawley) Course Vital Signs 06/12/22 06/12/22 13:27 16:39 Temperature 97.8 F Pulse Rate 79 83 Respiratory 20 18 Rate Blood Pressure 131/75 133/68 O2 Sat by Pulse 96 95 Oximetry Procedures - Laceration Laceration #1 Consent Obtained: verbal consent Indication: laceration Site: face Size (cm): 3 Description: linear Depth: simple, single layer Sedation/Analgesia: none Pre-repair: irrigated extensively Patient Tolerated Procedure: well <Leonel Powers - Last Filed: 06/12/22 16:57> - Laceration Laceration #1 Additional Comments: Dermabond applied successfully (Leonel Powers) Medical Decision Making <Ulises Crawley - Last Filed: 06/12/22 15:02> <Leonel Powers - Last Filed: 06/12/22 16:57> - Medical Decision Making CT of the brain and C-spine were interpreted by me. CT of the brain shows no bleed no mass effect. CT C-spine showed no fracture. (Ulises Crawley) I did assume care of the patient from Dr. Crawley. Chest x-ray, shoulder x-ray and pelvis x-rays were read and interpreted by myself. Chest x-ray, shoulder x-ray and pelvis x-ray all showed no fracture or any pathology noted. The patient likely had a soft tissue contusion secondary to the fall. The patient did state that he heard a "clunk" and felt his shoulder go back into place when EMS did arrive and move him onto the stretcher. Because of this, the patient was placed in a sling over the left shoulder. The patient was given a dose of Toradol in the emergency department as well as Tdap booster. The patient's laceration was also repaired per the note in the chart. The patient was advised to continue to monitor his symptoms and to report back to the emergency department if they became acutely worse. The patient was given a prescription for Robaxin, naproxen as well as [place] for pain control. The patient and his had all their questions answered appropriately and did understand all the instructions. The patient was discharged home in stable condition. (Leonel Powers) Disposition <Ulises Crawley - Last Filed: 06/12/22 15:02> Is patient prescribed a controlled substance at d/c from ED?: Yes When asked, does pt state using other controlled substances?: No If prescribed controlled substance>3 days was MAPS reviewed?: Prescribed <3 Days If opioid is for acute pain is fill amount 7 days or less?: Yes If Rx opioid, was Start Talking consent form obtained?: Yes Time of Disposition: 15:48 <Leonel Powers - Last Filed: 06/12/22 16:57> Clinical Impression: Fall, Contusion of soft tissue, Forehead laceration Disposition: HOME SELF-CARE Condition: Stable Instructions (If sedation given, give patient instructions): Head Injury (DC), Contusion in Adults (ED), Fall Prevention (ED), Head Laceration (ED) Prescriptions: Naproxen [EC-Naproxen] 500 mg PO BID 14 Days #28 tab HYDROcodone/APAP 5-325MG [[place] 5-325] 1 tab PO Q6HR PRN 3 Days #12 tab PRN Reason: Pain methocarbamoL [Robaxin-750] 750 mg PO TID 14 Days #52 tab Referrals: Bryan Sanchez DO [Primary Care Provider] - 1-2 days
--- NOTE | 2022-06-12 14:52 | CT ---
EXAMINATION TYPE: CT brain cspine wo con DATE OF EXAM: 06/12/2022 COMPARISON: None HISTORY: Fall. CT DLP: mGycm Automated exposure control for dose reduction was used. Images of the brain and cervical spine obtained with no contrast. The cervical vertebra have normal spacing and alignment. Posterior elements are intact. There is mild anterior spurring at C6-7. Facet joints are intact. Skull base is intact. There is normal aeration o f the mastoid sinuses. Ventricles have normal size. There is no mass effect or midline shift. No sign of intracranial hemorr lenny. Calvarium is intact. There is mucosal thickening in the maxillary sinuses. IMPRESSION: Negative CT scan of the brain. Negative CT scan cervical spine.
--- NOTE | 2022-06-12 15:19 | XR ---
EXAMINATION TYPE: XR shoulder complete LT DATE OF EXAM: 06/12/2022 COMPARISON: NONE HISTORY: Fall. Pain. TECHNIQUE: 3 views FINDINGS: There is no evidence of fracture nor dislocation. Glenohumeral joint is intact. No patholog ic calcification. IMPRESSION: Negative left shoulder exam. No fracture.
--- NOTE | 2022-06-12 15:19 | XR ---
EXAMINATION TYPE: XR Hip LT and AP Pelvis DATE OF EXAM: 06/12/2022 COMPARISON: NONE HISTORY: Fall. Hip pain TECHNIQUE: 3 views FINDINGS: The pelvic ring is intact. The proximal left femur and hip joint are intact. Sacroiliac teresa nts are intact. IMPRESSION: Negative pelvis and left hip exam.
--- NOTE | 2022-06-12 15:20 | XR ---
EXAMINATION TYPE: XR chest 2V DATE OF EXAM: 06/12/2022 COMPARISON: NONE HISTORY: Pain TECHNIQUE: 3 views FINDINGS: Heart and mediastinum are normal. Lungs are clear. Diaphragm is normal. Bony thorax is inta ct. IMPRESSION: Normal chest.
[2022-06-12] MEDS ORDERED: KETOROLAC 15 MG/ML 1 ML VIAL IVP STA (15:39)
[2022-06-12] MEDS ORDERED: DIPH,PERTUS(ACELL)TETVAC-LF 0.5 ML VIAL IM ONE (15:41)
[2022-06-12] MEDS ORDERED: TOPICAL SKIN ADHESIVE 1 EACH AMP TOPICAL ONE (15:49)
[2022-06-12 16:41] VITALS: BP 133/68; PULSE 83; RESP 18
== END 2022-06-12 16:41 | disposition home or self-care (01) ==
LOC: EC 13:20
DX: S01.81XA Laceration without foreign body of other part of head, initial encounter (principal); M79.81 Nontraumatic hematoma of soft tissue; I10 Essential (primary) hypertension; Z23 Encounter for immunization; W11.XXXA Fall on and from ladder, initial encounter
CPT/HCPCS: 99285; 96374; 96375; 90471; 73030; 73502; 71046; 72125; 70450; 90715; 12002; J1885; J1170

== ENCOUNTER → 2022-07-28 | Outpatient (CLI) | payer BC ==
--- NOTE | 2022-07-29 04:26 | MR ---
EXAMINATION TYPE: MR shoulder LT wo con DATE OF EXAM: 07/28/2022 COMPARISON: None HISTORY: Left shoulder pain and limited range of motion due to fall off ladder Multiplanar multiecho imaging of the left shoulder performed with no contrast. There is some fluid around the biceps tendon. There is mild shoulder joint effusion. Subscapularis te ndon is intact. There is increased signal and thickening and deformity in the anterior glenoid labrum . The AC joint is intact. On the T2 images there is some mild increased signal in the greater tuberosit y humerus in a linear distribution consistent with significant bone bruise. The supraspinatus tendon is intact. There is increased signal in the posterior aspect of the humeral head at the attachment of the infraspinatus tendon. There is no retraction. The AC joint shows some minor spur formation. There is mild narrowing of the glenohumeral joint space. IMPRESSION: There is a large area of edema in the posterior aspect of the humeral head near the greater tuberosit y and consistent with a significant bone bruise. There is complex tear of the anterior glenoid labrum . Shoulder joint effusion. Minimal narrowing of the shoulder joint space. No definite rotator cuff te ar.
== END | disposition home or self-care (01) ==
LOC: RADMRIMAIN 15:24
PROVIDERS: ATTEND Family Medicine
DX: S46.912D Strain of unspecified muscle, fascia and tendon at shoulder and upper arm level, left arm, subsequent encounter (principal); M25.412 Effusion, left shoulder; M25.812 Other specified joint disorders, left shoulder; W11.XXXD Fall on and from ladder, subsequent encounter